=== PATIENT | male | born 1945 ===

== ENCOUNTER → 2017-07-03 | Outpatient (CLI) | payer OTHER | LOC: NPA 12:00 | PROVIDERS: ATTEND Internal Medicine Hematology & Oncology | DX: Z79.899 Other long term (current) drug therapy (principal) ==

== ENCOUNTER → 2017-07-07 | Outpatient (CLI) | payer OTHER ==
[2017-07-12 09:43] LABS: ANION GAP 13.3 mmol/L (8-16); B-TYPE NATRIURETIC PEPTIDE 1607.3 pg/mL (0-100); BLOOD UREA NITROGEN 15 mg/dL (7-26); BUN/CREATININE RATIO 21 (6-25); CALCIUM 8.7 mg/dL (8.4-10.2); CARBON DIOXIDE 28 mmol/L (22-29); CHLORIDE 94 mmol/L (98-107); EST GLOMERULAR FILTRATION RATE > 60 ML/MIN (60-); GLUCOSE 112 mg/dL (74-118); POTASSIUM 4.3 mmol/L (3.5-5.1); SODIUM 131 mmol/L (136-145)
== END ==
LOC: NPA 10:00
PROVIDERS: ATTEND Internal Medicine Hematology & Oncology
DX: R69 Illness, unspecified (principal)
CPT/HCPCS: 36415; 80048; 83880